=== PATIENT | female | born 2000 | race Caucasian/White ===

== ENCOUNTER 2020-06-25 09:32 | Emergency (ER) | payer BC, SELFPAY ==
[2020-06-25 09:39] VITALS: BP 118/72; PULSE 88; RESP 16; TEMP 36.6; O2SAT 100
--- NOTE | 2020-06-25 09:50 | ED.GENADULT ---
HPI - General Adult General Chief complaint: Unspecified Stated complaint: poss exposure to std Time Seen by Provider: 06/25/20 09:46 Source: patient and RN notes reviewed Mode of arrival: ambulatory Limitations: no limitations History of Present Illness HPI narrative: 19-year-old female presents with concern that she was exposed to chlamydia approximately 3 weeks ago. She denies any symptoms. Denies abdominal pain, fever, nausea, vomiting, abnormal vaginal discharge. MD complaint: STD exposure Related Data Allergies Allergy/AdvReac Type Severity Reaction Status Date / Time No Known Allergies Allergy Verified 06/25/20 09:43 Review of Systems Review of Systems: Narrative: CONSTITUTIONAL: Denies malaise, chills, sweats, or fever. CARDIOVASCULAR: Denies chest pain, palpitations, or edema. RESPIRATORY: Denies cough or dyspnea. GASTROINTESTINAL: Denies abdominal pain, nausea, vomiting, diarrhea GENITOURINARY: Denies normal vaginal discharge, dysuria or hematuria. SKIN: Denies lesions, rash or itching. MUSCULOSKELETAL: Denies myalgia. All systems reviewed & are unremarkable except as noted in HPI and below PMFSH Comments At time of signature, agree with nursing past medical, surgical, social and family history. There is no relevant family history pertinent to the presenting complaint Exam Narrative: Exam Narrative: GENERAL: Well-appearing, well-nourished, and in no acute distress. HEAD: Normocephalic. EYES: PERRLA, conjunctivae clear. NECK: Supple. No lymphadenopathy CHEST: Clear to auscultation. No respiratory distress. HEART: Regular rate and rhythm. SKIN: Warm, dry, no rash. NEURO: Alert and oriented x3. PSYCH: Normal mood and affect Course Course Emergency Course: Patient is aware of, understands and agrees to treatment plan. Anticipatory guidance given. Patient agrees to follow-up as directed and is aware of reasons to seek care at the emergency department. Portions of this record may have been created with voice recognition software Vital Signs Vital signs: Vital Signs Temperature 97.9 F 06/25/20 09:39 Pulse Rate 88 06/25/20 09:39 Respiratory Rate 16 06/25/20 09:39 Blood Pressure 118/72 06/25/20 09:39 Pulse Oximetry 100 06/25/20 09:39 Temperature 97.9 F 06/25/20 09:39 Pulse Rate 88 06/25/20 09:39 Respiratory Rate 16 06/25/20 09:39 Blood Pressure 118/72 06/25/20 09:39 Pulse Oximetry 100 06/25/20 09:39 Reviewed. Medical Decision Making MDM Narrative Medical decision making narrative: Exam findings show no acute concerns or changes; patient is non-toxic appearing and is in no distress. Patient is appropriate for outpatient treatment and follow-up. Vital Signs Vital Signs: Vital Signs Temperature 97.9 F 06/25/20 09:39 Pulse Rate 88 06/25/20 09:39 Respiratory Rate 16 06/25/20 09:39 Blood Pressure 118/72 06/25/20 09:39 Pulse Oximetry 100 06/25/20 09:39 Temperature 97.9 F 06/25/20 09:39 Pulse Rate 88 06/25/20 09:39 Respiratory Rate 16 06/25/20 09:39 Blood Pressure 118/72 06/25/20 09:39 Pulse Oximetry 100 06/25/20 09:39 Critical Care Time Critical Care Time Critical Care Time: No Discharge Plan Discharge Clinical Impression: Possible exposure to STD Patient Disposition: Home, Self-Care Condition: Stable Instructions: Antibiotic Form, Safe Sex Practices (ED) Additional Instructions: You have been tested for potential gonorrhea, chlamydia, and trichomoniasis today. You have received antibiotics for gonorrhea and chlamydia today, a prescription has been called into your pharmacy to treat trichomoniasis. You will receive a phone call in 2-3 days with the results of today's testing. It is very important that you avoid unprotected intercourse for 7 days and until your partner(s) have been treated. Please encourage your partner(s) to seek testing and treatment. When you have been exposed to sexually transmitted infection
[2020-06-25] MEDS: AZITHROMYCIN 250 MG TABLET 1000 MG PO (10:04)
[2020-06-25] MEDS: LIDOCAINE HCL 1% LOCAL INJ 20 ML VIAL INFILTRATE (10:05)
[2020-06-25] MEDS: cefTRIAXone 250 MG VIAL IM (10:06)
== END 2020-06-25 10:16 | disposition home or self-care (01) ==
PROVIDERS: Emergency Provider Nurse Practitioner
DX: Z04.89 Encounter for examination and observation for other specified reasons (principal)
CPT/HCPCS: 87491; 87591; 87661; 96372; 99214; A9270; G0463; J0696

== ENCOUNTER 2021-01-29 13:17 | Emergency (ER) | payer BC, SELFPAY ==
--- NOTE | 2021-01-29 13:19 | ED.FEMALEGU ---
HPI - Female Genitourinary General Chief complaint: Urogenital-Female Stated complaint: poss uti Time Seen by Provider: 01/29/21 13:19 Source: patient and RN notes reviewed History of Present Illness HPI Narrative: Patient is a 20-year-old female who presents the urgent care with complaints of a possible UTI. Patient states of the last 2 days she has had some urinary frequency as well as low back pain, worse on the right. Patient denies of any burning with urination, urgency, vaginal discharge, fever, nausea, vomiting, abdominal pain. Patient denies of any chance of or STD. No other acute complaints. No acute distress noted. Patient aware of the plan of care. Some parts of this dictation were generated by voice recognition software and may contain typographical and/or grammatical inaccuracies. Related Data Allergies Allergy/AdvReac Type Severity Reaction Status Date / Time No Known Allergies Allergy Verified 01/29/21 13:25 Review of Systems Review of Systems: Narrative: CONSTITUTIONAL: Denies fever, chills, or sweats. EYES: Denies visual changes, redness, or discharge. ENT: Denies rhinorrhea, congestion, sore throat, or otalgia. CARDIOVASCULAR: Denies chest pain, palpitations, or edema. RESPIRATORY: Denies cough or dyspnea. GASTROINTESTINAL: Denies abdominal pain, nausea, vomiting, or diarrhea. GENITOURINARY: Reports of urinary frequency SKIN: Denies rash or itching. MUSCULOSKELETAL: Reports of mild bilateral low back pain, worse to the right. NEUROLOGIC: Denies headache, numbness, or weakness. All other systems reviewed are negative, except as documented in HPI. PMFSH Comments At the time of my signature, I reviewed and agree with the nursing past medical, surgical, social, and family history. There is no relevant family history pertinent to the patient complaint. Exam Narrative: Exam Narrative: GENERAL: This is a well-nourished, well-developed patient, in no apparent distress. HEAD: normocephalic, atraumatic. EYES: PERRL. Sclera clear/white. Vision is grossly intact. EARS: External ears normal NOSE: External nose normal with no obvious nasal discharge, nares without redness, no rhinorrhea. THROAT: Mucous membranes moist NECK: Neck supple CARDIOVASCULAR: Regular rate and rhythm without murmurs, gallops, or rubs. RESPIRATORY: Clear to auscultation. Breath sounds equal bilaterally. No wheezes, rales, or rhonchi. GASTROINTESTINAL: Abdomen soft, non-tender, nondistended. SKIN: warm, intact with no suspicious lesions or rash, good texture and turgor. NEURO: awake, alert, and oriented to person, place and time. There were no obvious focal neurologic abnormalities. EXTREMITIES: No clubbing, cyanosis, or edema. BACK: Negative bilateral CVA tenderness Course Vital Signs Vital signs: Vital Signs Temperature 98.6 F 01/29/21 13:22 Pulse Rate 97 01/29/21 13:22 Respiratory Rate 18 01/29/21 13:22 Blood Pressure 128/77 01/29/21 13:22 Pulse Oximetry 100 01/29/21 13:22 Temperature 98.6 F 01/29/21 13:22 Pulse Rate 97 01/29/21 13:22 Respiratory Rate 18 01/29/21 13:22 Blood Pressure 128/77 01/29/21 13:22 Pulse Oximetry 100 01/29/21 13:22 Reviewed MDM - Female Genitourinary MDM Narrative Medical decision making narrative: Reviewed lab results with the patient. She is aware that urine analysis was positive for UTI. Advised the patient to complete oral antibiotic regimen as prescribed. Be sure to eat and drink with the medication. Use Pyridium as needed for bladder spasms/frequency. Increase your water intake and avoid sugary and caffeinated drinks. If you develop any increase in symptoms associated with abdominal pain, nausea, vomiting?go to the emergency room. Follow-up with your PCP within 2 to 5 days or for worsening symptoms or failure to improve. Differential Diagnosis Differential diagnosis: Likely urinary tract infection, trichomoniasis, cervicitis and vaginitis Lab Data A
[2021-01-29 13:22] VITALS: BP 128/77; PULSE 97; RESP 18; TEMP 37; O2SAT 100
== END 2021-01-29 13:50 | disposition home or self-care (01) ==
PROVIDERS: Emergency Provider Nurse Practitioner Family
DX: N39.0 Urinary tract infection, site not specified (principal)
CPT/HCPCS: 81003; 87077; 87086; 87088; 99213; G0463

== ENCOUNTER 2022-03-12 13:03 | Emergency (ER) | payer BC, SELFPAY ==
--- NOTE | ~2022-03-12 | XR_ITS ---
EXAMINATION: XR foot RT min 3V DATE: 03/12/2022 13:21 INDICATION: Right foot inversion injury. TECHNIQUE: 4 views of right foot were obtained. COMPARISON: None. FINDINGS: Bone alignment is normal. No fracture. Joint spaces are well maintained. IMPRESSION: 1. Normal right foot. Reviewed, dictated and finalized at location A. IMPRESSION: 1. Normal right foot.
--- NOTE | 2022-03-12 13:05 | ED.LOWEXIN ---
HPI - Extremity Injury (Lower) General Chief Complaint: Extremity Injury, Lower Stated Complaint: Right Foot Pain Time Seen by Provider: 03/12/22 13:05 Source: patient and RN notes reviewed History of Present Illness HPI Narrative: Patient is a 21-year-old female who presents the urgent care with complaints of right foot pain. Patient states that she was running from a hornet around the concrete pool prior to arrival in flip-flops, and slipped. Patient states that she has placed ice on the wound but otherwise has not taken anything for pain prior to arrival. No other acute complaints or injuries. No acute distress noted. Patient aware of the plan of care. Some parts of this dictation were generated by voice recognition software and may contain typographical and/or grammatical inaccuracies. Related Data Home Medications Medication Instructions Recorded Confirmed No Home Medications 03/12/22 03/12/22 Allergies Allergy/AdvReac Type Severity Reaction Status Date / Time No Known Allergies Allergy Verified 03/12/22 13:14 Review of Systems Review of Systems: CONSTITUTIONAL: Denies fever, chills, or sweats. EYES: Denies visual changes, redness, or discharge. ENT: Denies rhinorrhea, congestion, sore throat, or otalgia. CARDIOVASCULAR: Denies chest pain, palpitations, or edema. RESPIRATORY: Denies cough or dyspnea. GASTROINTESTINAL: Denies abdominal pain, nausea, vomiting, or diarrhea. GENITOURINARY: Denies dysuria or hematuria. SKIN: Denies rash or itching. MUSCULOSKELETAL: Reports of right foot pain NEUROLOGIC: Denies headache, numbness, or weakness. All other systems reviewed are negative, except as documented in HPI. PMFSH Comments At the time of my signature, I reviewed and agree with the nursing past medical, surgical, social, and family history. There is no relevant family history pertinent to the patient complaint. Exam Narrative: GENERAL: This is a well-nourished, well-developed patient, in no apparent distress. HEAD: normocephalic, atraumatic. EYES: PERRL. Sclera clear/white. Vision is grossly intact. EARS: External ears normal NOSE: External nose normal with no obvious nasal discharge, nares without redness, no rhinorrhea. THROAT: Mucous membranes moist NECK: Neck supple SKIN: Superficial pinpoint abrasions to the dorsal aspect of the right foot. Warm, intact with no suspicious lesions or rash, good texture and turgor. NEURO: awake, alert, and oriented to person, place and time. There were no obvious focal neurologic abnormalities. EXTREMITIES: No obvious deformity, fracture, edema, ecchymosis or erythema noted to the right lower extremity. Positive strong right pedal pulse with capillary refill less than 2 seconds. Range of motion to right foot/lower extremity within normal limits Course Course Level of Care: Express Care Visit Vital Signs Vital signs: Vital Signs Temperature 98.9 F 03/12/22 13:08 Pulse Rate 105 H 03/12/22 13:08 Respiratory Rate 16 03/12/22 13:08 Blood Pressure 124/74 03/12/22 13:08 Pulse Oximetry 99 03/12/22 13:08 Oxygen Delivery Room Air 03/12/22 13:08 Temperature 98.9 F 03/12/22 13:15 Pulse Rate 105 H 03/12/22 13:15 Respiratory Rate 16 03/12/22 13:15 Blood Pressure 124/74 03/12/22 13:15 Pulse Oximetry 99 03/12/22 13:15 Oxygen Delivery Room Air 03/12/22 13:15 Reviewed MDM - Extremity Injury (Lower) MDM Narrative Medical decision making narrative: Reviewed x-ray results with the patient. She is aware the x-ray is negative for any fracture or deformity. Advised patient to wear supportive shoe and Robert wrap as needed for comfort and support. Use ice/Tylenol/ibuprofen as needed for pain. Avoid any strenuous activity for the next 3 to 5 days or until activity as tolerated as normal. Follow-up with your PCP within 2 to 5 days or for worsening symptoms or failure to improve. Differential Diagnosis Differential diagnosis: Likely ankle sprai
[2022-03-12 13:08] VITALS: BP 124/74; PULSE 105; RESP 16; TEMP 37.2; O2SAT 99
[2022-03-12 13:15] VITALS: BP 124/74; PULSE 105; RESP 16; TEMP 37.2; O2SAT 99
== END 2022-03-12 13:54 | disposition home or self-care (01) ==
PROVIDERS: Emergency Provider Nurse Practitioner Family
DX: S93.601A Unspecified sprain of right foot, initial encounter (principal); W18.40XA Slipping, tripping and stumbling without falling, unspecified, initial encounter; M41.9 Scoliosis, unspecified
CPT/HCPCS: 73630; 99213; G0463